=== PATIENT | female | born 1965 | race American Indian/Alaskan Native ===

== ENCOUNTER 2017-09-21 11:29 | Emergency (ER) | payer MEDICARE ==
[2017-09-21] MEDS ORDERED: DUONEB *Not for PRN Use IH ONE (11:50)
[2017-09-21] MEDS ORDERED: DELTASONE PO ONE (11:50)
--- NOTE | 2017-09-21 11:53 | Emergency Department Report ---
ED Shortness of Breath HPI - General Chief Complaint: Adult Asthma Stated Complaint: SOB Time Seen by Provider: 09/21/17 11:46 Source: patient Mode of arrival: Ambulatory Limitations: No Limitations - History of Present Illness Initial Comments: 52-year-old female past medical history sarcoidosis, asthma, nonsmoker presents with complaint of 2 days of chest tightness sensation and slight shortness of breath. Patient denies fevers or chills denies productive cough. States that this feels consistent with her previous symptoms of either asthma or sarcoidosis flares. Last flare was in July 2017. Patient is speaking in full sentences no audible wheezing or stridor. Patient denies any personal history of PE or DVT. Denies any pleuritic chest pain or any recent travel or any recent surgeries. Patient is fully lucid. Accompanied by at bedside. MD Complaint: shortness of breath, "asthma attack" Onset/Timin -: days(s) Severity: moderate Consistency: intermittent Known History Of: asthma, other (sacroidosis) Treatments Prior to Arrival: none - Related Data Previous Rx's Medication Instructions Recorded Last Taken Type ALBUTEROL Inhaler [ProAir HFA 2 puff IH QID PRN #1 inhalation 09/14/15 Unknown Rx Inhaler] Azithromycin [Zithromax Z-ESHA] 250 mg PO DAILY #6 tab 09/14/15 Unknown Rx Fluticasone/Salmeterol [Advair 1 puff IH BID #1 disk.w.dev 09/14/15 Unknown Rx Diskus 250-50 mcg] predniSONE [Deltasone] 20 mg PO BID #10 tab 09/14/15 Unknown Rx Albuterol Sulfate [Ventolin Hfa] 1 puff IH Q4H PRN #1 hfa.aer.ad 09/21/17 Unknown Rx predniSONE [Deltasone] 10 mg PO QDAY #5 tab 09/21/17 Unknown Rx predniSONE [Deltasone] 20 mg PO QDAY #5 tablet 09/21/17 Unknown Rx predniSONE [Deltasone] 40 mg PO QDAY #10 tab 09/21/17 Unknown Rx Allergies Allergy/AdvReac Type Severity Reaction Status Date / Time No Known Allergies Allergy Verified 09/21/17 11:34 ED Review of Systems ROS: Stated complaint: SOB Other details as noted in HPI Constitutional: denies: chills, fever Eyes: denies: eye pain, eye discharge, vision change ENT: denies: ear pain, throat pain Respiratory: shortness of breath, wheezing. denies: cough Cardiovascular: denies: chest pain, palpitations Endocrine: no symptoms reported Gastrointestinal: denies: abdominal pain, nausea, diarrhea Genitourinary: denies: urgency, dysuria, discharge Musculoskeletal: denies: back pain, joint swelling, arthralgia Skin: denies: rash, lesions Neurological: denies: headache, weakness, paresthesias Psychiatric: denies: anxiety, depression Hematological/Lymphatic: denies: easy bleeding, easy bruising ED Past Medical Hx - Past Medical History Hx Hypertension: Yes Hx Asthma: Yes Additional medical history: scarcodosis of lungs - Surgical History Additional Surgical History: tubal ligation - Social History Smoking Status: Never Smoker Substance Use Type: None - Medications Home Medications: Home Medications Medication Instructions Recorded Confirmed Last Taken Type ALBUTEROL Inhaler [ProAir HFA 2 puff IH QID PRN #1 inhalation 09/14/15 Unknown Rx Inhaler] Azithromycin [Zithromax Z-ESHA] 250 mg PO DAILY #6 tab 09/14/15 Unknown Rx Fluticasone/Salmeterol [Advair 1 puff IH BID #1 disk.w.dev 09/14/15 Unknown Rx Diskus 250-50 mcg] predniSONE [Deltasone] 20 mg PO BID #10 tab 09/14/15 Unknown Rx Albuterol Sulfate [Ventolin Hfa] 1 puff IH Q4H PRN #1 hfa.aer.ad 09/21/17 Unknown Rx predniSONE [Deltasone] 10 mg PO QDAY #5 tab 09/21/17 Unknown Rx predniSONE [Deltasone] 20 mg PO QDAY #5 tablet 09/21/17 Unknown Rx predniSONE [Deltasone] 40 mg PO QDAY #10 tab 09/21/17 Unknown Rx ED Physical Exam - General Limitations: No Limitations General appearance: alert, in no apparent distress - Head Head exam: Present: atraumatic, normocephalic - Eye Eye exam: Present: normal appearance - ENT ENT exam: Present: mucous membranes moist - Neck Neck exam: Present: normal inspection - Respiratory Respiratory exam: Present: wheezes (mild wheezing bilateral lower lung johns). Absent: respiratory distress - Cardiovascular Cardiovascular Exam: Present: regular rate, normal rhythm. Absent: systolic murmur, diastolic murmur, rubs, gallop - GI/Abdominal GI/Abdominal exam: Present: soft, normal bowel sounds - Extremities Exam Extremities exam: Present: normal inspection - Back Exam Back exam: Present: normal inspection - Neurological Exam Neurological exam: Present: alert, oriented X3 - Psychiatric Psychiatric exam: Present: normal affect, normal mood - Skin Skin exam: Present: warm, dry, intact, normal color. Absent: rash ED Course Vital Signs 09/21/17 11:34 Temperature 98.7 F Pulse Rate 72 Respiratory 20 Rate Blood Pressure 143/87 O2 Sat by Pulse 99 Oximetry ED Medical Decision Making - Medical Decision Making A/P: Sarcoidosis versus asthma flare 1-patient feels significantly better after DuoNeb treatment and a dose of prednisone. Speaking in full sentences denies any chest tightness or wheezing is whatsoever. Patient has no audible wheezing on auscultation upon reassessment 2-vital signs stable for discharge 3-albuterol when necessary, prednisone course. Will give patient slightly longer course as recommended by [employer] [email or web address]&source=search_result&selectedTitle=1~[email or web address]&usage_type= default&display_rank=[id number] Critical care attestation.: If time is entered above; I have spent that time in minutes in the direct care of this critically ill patient, excluding procedure time. ED Disposition Clinical Impression: Sarcoidosis of lung Asthma Qualifiers: Asthma severity: mild Asthma persistence: unspecified Asthma complication type : unspecified Qualified Code(s): J45.998 - Other asthma Disposition: DC-01 TO HOME OR SELFCARE Is pt being admited?: No Does the pt Need Aspirin: No Condition: Stable Instructions: Asthma (ED), Sarcoidosis (ED) Prescriptions: Albuterol Sulfate [Ventolin Hfa] 1 puff IH Q4H PRN #1 hfa.aer.ad PRN Reason: Wheezing predniSONE [Deltasone] 10 mg PO QDAY #5 tab predniSONE [Deltasone] 40 mg PO QDAY #10 tab predniSONE [Deltasone] 20 mg PO QDAY #5 tablet Referrals: PRIMARY CARE, [Primary Care Provider] - 3-5 Days [facility] [Provider Group] - 3-5 Days MARY BETH HERNANDEZ MD [Staff Physician] - 3-5 Days Forms: Accompanied Note Time of Disposition: 13:08
--- NOTE | 2017-09-21 12:55 | XRay Report ---
FINAL REPORT EXAM: XR CHEST ROUTINE 2V HISTORY: Shortness of breath, hx of asthma+sarcoid TECHNIQUE: Two views of the chest Comparison: None FINDINGS: Heart size is normal. There are coarse bilateral increased interstitial markings with scarring and suprahilar retraction of both hilar contours. There nodularity of the right hilar contour. There is patchy ill-defined opacity in the posterior costophrenic sulcus on the lateral projection. Chronicity these findings is unknown. IMPRESSION: Abnormal exam with coarse bilateral scarring and suprahilar retraction. Nodularity of the right hilum. Findings may be the sequela of sarcoid. Recommend CT chest with IV contrast since no priors are available for comparison.
[2017-09-21 13:17] VITALS: BP 140/90
== END 2017-09-21 13:17 | disposition home or self-care (01) ==
LOC: ED 11:29
DX: D86.0 Sarcoidosis of lung (principal); J45.998 Other asthma; I10 Essential (primary) hypertension
CPT/HCPCS: 71046; 94640; 99283; J7512

== ENCOUNTER 2017-11-11 21:16 | Emergency (ER) | payer MEDICARE ==
[2017-11-11 22:34] LABS: Hematocrit 32.5 % (30.3-42.9); Hemoglobin 10.5 gm/dl (10.1-14.3); Mean Corpuscular HGB Conc 32 % (30-34); Mean Corpuscular Volume 72 fl (79-97); Platelet Count 190 K/mm3 (140-440); Red Blood Count 4.51 M/mm3 (3.65-5.03); Red Cell Distribution Width 19.5 % (13.2-15.2)
[2017-11-11 22:36] LABS: Mean Corpuscular Hemoglobin 23 pg (28-32)
[2017-11-11 22:52] LABS: BUN/Creatinine Ratio 15; Blood Urea Nitrogen 12 mg/dL (7-17); Calcium 9.6 mg/dL (8.4-10.2); Hemolysis Index 0
[2017-11-12 03:21] VITALS: BP 170/92
[2017-11-12] MEDS ORDERED: MOTRIN PO ONE (03:23)
[2017-11-12] MEDS ORDERED: MOTRIN ONE (03:27)
== END 2017-11-12 01:00 | disposition left against medical advice (07) ==
LOC: ED 21:16
DX: M79.602 Pain in left arm (principal); Z53.21 Procedure and treatment not carried out due to patient leaving prior to being seen by health care provider
CPT/HCPCS: 36415; 80048; 85027

== ENCOUNTER 2017-11-12 15:21 | Emergency (ER) | payer MEDICARE ==
[2017-11-12 15:30] VITALS: BP 161/95
== END 2017-11-12 15:30 | disposition left against medical advice (07) ==
LOC: ED 15:21
DX: R10.9 Unspecified abdominal pain (principal); Z53.21 Procedure and treatment not carried out due to patient leaving prior to being seen by health care provider
CPT/HCPCS: 93005; 93010

== ENCOUNTER 2018-05-05 11:02 | Emergency (ER) | payer MEDICARE ==
--- NOTE | 2018-05-05 11:42 | Emergency Department Report ---
Blank Doc - Documentation Documentation: This is a 57 y.o. female that presents with chest pain x 2 days. Patient repo rts pain as pressure center chest. Reports pain is worse with cough. Patient states she recent went to [place] and when she returned she had flu-like symptoms. cc: cough, sore throat, and aches. Ordered EKG and CXR. Fast track for further evaluation.
[2018-05-05] MEDS ORDERED: SOLU-Medrol IM ONE (12:36)
[2018-05-05] MEDS ORDERED: PROVENTIL IH ONE (12:36)
[2018-05-05] MEDS ORDERED: TYLENOL/CODEINE PO ONE (12:36)
--- NOTE | 2018-05-05 12:43 | Emergency Department Report ---
- General Chief Complaint: Chest Pain Stated Complaint: COUGH/CHEST PAIN Time Seen by Provider: 05/05/18 11:41 Source: patient Mode of arrival: Ambulatory Limitations: No Limitations - History of Present Illness Initial Comments: This is a 53-year-old female with a history of COPD who presents to the ED stating that she is experiencing nonproductive cough, for the past 2 days. Patient states she is also experiencing chest pain associated with coughing since is localized to the center of her chest. Patient states her aware visiting all [place] and just returned couple of days ago. States he was snowing" update. States the symptoms started with a left [place]. She denies fever, chills, nausea vomiting abdominal pain MD Complaint: fever, cough -: Gradual Severity: mild Severity scale (0 -10): 6 Quality: aching Consistency: intermittent Associated Symptoms: fever, sore throat, cough. denies: myalgias, headache, nausea, vomiting, rash, confusion, right sweats - Related Data Previous Rx's Medication Instructions Recorded Last Taken Type ALBUTEROL Inhaler (OR & NICU) 2 puff IH QID PRN #1 inhalation 09/14/15 Unknown Rx [ProAir HFA Inhaler] Azithromycin [Zithromax Z-ESHA] 250 mg PO DAILY #6 tab 09/14/15 Unknown Rx Fluticasone/Salmeterol [Advair 1 puff IH BID #1 disk.w.dev 09/14/15 Unknown Rx Diskus 250-50 mcg] predniSONE [Deltasone] 20 mg PO BID #10 tab 09/14/15 Unknown Rx Albuterol Sulfate [Ventolin Hfa] 1 puff IH Q4H PRN #1 hfa.aer.ad 09/21/17 Unknown Rx predniSONE [Deltasone] 10 mg PO QDAY #5 tab 09/21/17 Unknown Rx predniSONE [Deltasone] 20 mg PO QDAY #5 tablet 09/21/17 Unknown Rx predniSONE [Deltasone] 40 mg PO QDAY #10 tab 09/21/17 Unknown Rx Acetamin/Codeine 120-12Mg/5 ml 5 ml PO TID PRN #50 ml 05/05/18 Unknown Rx [Tylenol/Codeine] Benzonatate [Tessalon Perles] 100 mg PO Q8HR #20 capsule 05/05/18 Unknown Rx Ibuprofen [Motrin] 800 mg PO Q8HR #30 tablet 05/05/18 Unknown Rx Allergies Allergy/AdvReac Type Severity Reaction Status Date / Time No Known Allergies Allergy Verified 05/05/18 11:52 ED Review of Systems ROS: Stated complaint: COUGH/CHEST PAIN Other details as noted in HPI Comment: All other systems reviewed and negative ED Past Medical Hx - Past Medical History Hx Hypertension: Yes Hx Asthma: Yes Additional medical history: scarcodosis of lungs - Surgical History Additional Surgical History: tubal ligation - Social History Smoking Status: Never Smoker Substance Use Type: None - Medications Home Medications: Home Medications Medication Instructions Recorded Confirmed Last Taken Type ALBUTEROL Inhaler (OR & NICU) 2 puff IH QID PRN #1 inhalation 09/14/15 Unknown Rx [ProAir HFA Inhaler] Azithromycin [Zithromax Z-ESHA] 250 mg PO DAILY #6 tab 09/14/15 Unknown Rx Fluticasone/Salmeterol [Advair 1 puff IH BID #1 disk.w.dev 09/14/15 Unknown Rx Diskus 250-50 mcg] predniSONE [Deltasone] 20 mg PO BID #10 tab 09/14/15 Unknown Rx Albuterol Sulfate [Ventolin Hfa] 1 puff IH Q4H PRN #1 hfa.aer.ad 09/21/17 Unknown Rx predniSONE [Deltasone] 10 mg PO QDAY #5 tab 09/21/17 Unknown Rx predniSONE [Deltasone] 20 mg PO QDAY #5 tablet 09/21/17 Unknown Rx predniSONE [Deltasone] 40 mg PO QDAY #10 tab 09/21/17 Unknown Rx Acetamin/Codeine 120-12Mg/5 ml 5 ml PO TID PRN #50 ml 05/05/18 Unknown Rx [Tylenol/Codeine] Benzonatate [Tessalon Perles] 100 mg PO Q8HR #20 capsule 05/05/18 Unknown Rx Ibuprofen [Motrin] 800 mg PO Q8HR #30 tablet 05/05/18 Unknown Rx ED Physical Exam - General Limitations: No Limitations General appearance: alert, in no apparent distress - Head Head exam: Present: atraumatic, normocephalic - Eye Eye exam: Present: normal appearance - ENT ENT exam: Present: mucous membranes moist - Neck Neck exam: Present: normal inspection - Respiratory Respiratory exam: Present: normal lung sounds bilaterally, chest wall tenderness. Absent: respiratory distress, wheezes, accessory muscle use - Cardiovascular Cardiovascular Exam: Present: regular rate, normal rhythm. Absent: systolic murmur, diastolic murmur, rubs, gallop - GI/Abdominal GI/Abdominal exam: Present: soft, normal bowel sounds - Extremities Exam Extremities exam: Present: normal inspection - Back Exam Back exam: Present: normal inspection - Neurological Exam Neurological exam: Present: alert, oriented X3 - Psychiatric Psychiatric exam: Present: normal affect, normal mood - Skin Skin exam: Present: warm, dry, intact, normal color. Absent: rash ED Medical Decision Making - Radiology Data Radiology results: report reviewed, image reviewed Fluoro Time In Minutes: ROUTINE CHEST, TWO VIEWS: HISTORY: Chest discomfort and cough. Prominent interstitial markings with minimal volume loss in the upper lobes is again identified and unchanged since 09/21/17. These findings suggest underlying sarcoidosis. There is no evidence for new infiltrate, pleural effusion or pneumothorax. Normal heart and mediastinal structures. The bony structures are grossly intact. IMPRESSION: Chronic findings as described above which are suggestive of sarcoidosis. No acute process. Transcribed By: TTR Dictated By: RAY MADERA JR, MD Electronically Authenticated By: RAY MADERA JR, MD Signed Date/Time: 05/05/18 1321 - Medical Decision Making 53-year-old female presents with viral syndrome no fever during the ED stay. She received a breathing treatment in the ED, steroids. Chest x-ray shows no acute findings. See reported above Discussed with mother symptomatic relief with [id number] medications. Discussed continue Motrin as needed for fever and pain. Discussed increase fluids and diet intake. Discussed rest much needed. Discussed daily vitamin C for immune booster. Discussed follow-up with primary care in 3-5 days. Patient' verbally states she understands and will comply the following instructions and follow-up Vital signs stable. Patient is in no acute distress Critical care attestation.: If time is entered above; I have spent that time in minutes in the direct care of this critically ill patient, excluding procedure time. ED Disposition Clinical Impression: URI (upper respiratory infection), Bronchitis Disposition: DC-01 TO HOME OR SELFCARE Is pt being admited?: No Does the pt Need Aspirin: No Condition: Stable Instructions: Chronic Bronchitis (ED), Viral Syndrome (ED) Additional Instructions: Make sure to follow up with the primary care physician as discussed. Take all your medications as you've been prescribed. If you have any worsening symptoms or develop new symptoms please return to ED immediately. Prescriptions: Acetamin/Codeine 120-12Mg/5 ml [Tylenol/Codeine] 5 ml PO TID PRN #50 ml PRN Reason: Pain Benzonatate [Tessalon Perles] 100 mg PO Q8HR #20 capsule Ibuprofen [Motrin] 800 mg PO Q8HR #30 tablet Referrals: IMELDA PALMER MD [Primary Care Provider] - 3-5 Days [facility] [Outside] - 3-5 Days Forms: Accompanied Note, Work/School Release Form(ED) Time of Disposition: 13:40
--- NOTE | 2018-05-05 13:25 | XRay Report ---
ROUTINE CHEST, TWO VIEWS: HISTORY: Chest discomfort and cough. Prominent interstitial markings with minimal volume loss in the upper lobes is again identified and unchanged since 09/21/17. These findings suggest underlying sarcoidosis. There is no evidence for new infiltrate, pleural effusion or pneumothorax. Normal heart and mediastinal structures. The bony structures are grossly intact. IMPRESSION: Chronic findings as described above which are suggestive of sarcoidosis. No acute process.
== END 2018-05-05 14:02 | disposition home or self-care (01) ==
LOC: ED 11:02
DX: J40 Bronchitis, not specified as acute or chronic (principal); J06.9 Acute upper respiratory infection, unspecified; J44.9 Chronic obstructive pulmonary disease, unspecified; I10 Essential (primary) hypertension; Z98.51 Tubal ligation status
CPT/HCPCS: 71046; 93005; 93010; 94640; 96372; 99283; J2920